=== PATIENT | male | born 1990 | race American Indian/Alaskan Native ===

== ENCOUNTER 2021-03-03 09:14 | Emergency (ER) | payer SELFPAY ==
[2021-03-03 10:00] VITALS: BP 112/69
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
== END 2021-03-03 11:48 | disposition home or self-care (01) ==
LOC: ED 09:14
DX: S70.02XA Contusion of left hip, initial encounter (principal); Z79.899 Other long term (current) drug therapy; V49.59XA Passenger injured in collision with other motor vehicles in traffic accident, initial encounter; Y93.89 Activity, other specified; Y92.488 Other paved roadways as the place of occurrence of the external cause; Y99.8 Other external cause status
CPT/HCPCS: 99283